=== PATIENT | female | born 1975 | race Caucasian/White ===

== ENCOUNTER 2017-07-18 02:26 | Emergency (ER) | payer OTHER ==
[~2017-07-18] VITALS: Ht 162.6 cm; Wt 123.3 kg
[2017-07-18 02:30] VITALS: TEMP 36.8; Ht 162.6 cm; Wt 123.3 kg
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
[2017-07-18 03:23] VITALS: BP 148/91; PULSE 110; O2SAT 97
[2017-07-18 07:34] LABS: HEP C IGG 13 YRS+OLDER_RFLX NEG (NEG)
--- NOTE | 2017-07-18 16:25 | Pharmacy Progress Note ---
ED Pharmacist Progress Note Date of Service: Jul 18, 2017. Patient had dropped off paperwork requesting Rx's for post-exposure prophylaxis medications Isentress and Truvada. She had been seen by slot shift supervisor PA. The patient presented w/ 4-day starter pack of Isentress + Truvada from the custodial. I contacted the custodial employee health dept who stated they provided the started pack but would like our ED providers to write for the remainder of a 28- day rx. Employee health could not confirm if they were in fact going to follow through w/ source patient HIV testing. I reviewed the case w/ Dr Mendoza. He stated that ED provider cannot provide new Rx's without seeing the patient again in the ED. I spoke with the patient over the phone, she stated she would schedule a f/u visit with the contracted physician through her employer.
== END 2017-07-18 03:37 | disposition home or self-care (01) ==
LOC: C.EDB 02:28 → C.EDA 03:37
DX: Z77.21 Contact with and (suspected) exposure to potentially hazardous body fluids (principal); Y99.0 Civilian activity done for income or pay; F17.200 Nicotine dependence, unspecified, uncomplicated